=== PATIENT | male | born 1970 | race Caucasian/White ===

== ENCOUNTER 2020-07-13 14:22 | Emergency (ER) | payer SELFPAY ==
[2020-07-13] MEDS ORDERED: PREDNISONE 20 MG TABLET PO ONE (15:16)
[2020-07-13] MEDS ORDERED: IPRATROPIUM/ALBUTEROL 0.5-2.5 MG/3 ML AMPUL NEB ONE (15:17)
--- NOTE | 2020-07-13 15:22 | ER Document Report ---
ED Respiratory Problem - General Chief Complaint: Shortness Of Breath Stated Complaint: SHORTNESS OF BREATH,COUGH Time Seen by Provider: 07/13/20 15:05 - HPI Notes: Patient is a 50-year-old male with no significant past medical history who presents for shortness of breath. Shortness of breath has been present for 2 months. He states that it worsened in the last couple days. It is worse at night. He denies any orthopnea. No leg swelling. No fever or chills. No recent illnesses. No nausea, vomiting or diarrhea. Patient states he is a daily smoker. He has not seen a doctor in many years. He states he has some pain at his right lateral ribs when he coughs. No recent surgeries. No immobilization. No recent travel. - Related Data Allergies/Adverse Reactions: No Known Allergies Allergy (Unverified 07/13/20 14:50) Past Medical History - General Information source: Patient - Social History Smoking Status: Current Every Day Smoker Family History: Reviewed & Not Pertinent Pulmonary Medical History: Reports: Hx COPD Review of Systems - Review of Systems Notes: CONSTITUTIONAL: No fever, fatigue or weight loss. SKIN: No rash. HENT: No congestion, ear pain, or sore throat. EYES: No recent vision problems or eye pain. CARDIOVASCULAR: No chest pain or edema. RESPIRATORY: Positive for shortness of breath. Positive for wheezing. Positive for right rib pain with coughing. GASTROINTESTINAL: No abdominal pain, nausea, vomiting, bloody stools or diarrhea. MUSCULOSKELETAL: No joint pain or swelling. NEUROLOGIC: No seizures. No headache, focal weakness or sensory changes. HEMATOLOGIC: No unusual bruising or bleeding. PSYCHIATRIC: No depression or anxiety. Physical Exam - Vital signs Vitals: Temp Pulse Resp BP Pulse Ox 98.0 F 79 20 130/89 H 95 07/13/20 14:30 07/13/20 14:30 07/13/20 14:30 07/13/20 14:30 07/13/20 14:30 - General General appearance: Appears well Notes: VITAL SIGNS: Within normal limits. GENERAL: No acute distress, non-toxic appearance. HEAD: Normal with no signs of head trauma. EYES: Conjunctiva normal, no discharge. EARS: Hearing grossly intact. NOSE: Normal. NECK: Normal range of motion, no tenderness, supple, no lymphadenopathy, No adenopathy, no JVD. CHEST: Wheezing in upper and lower quadrants bilaterally. CARDIAC: Regular rate and rhythm. S1 and S2, without murmurs, gallops, or rubs. VASCULAR: No Edema. ABDOMEN: Normal and soft with no tenderness, no masses or pulsatile masses. GASTROINTESTINAL: Bowel sounds normal MUSCULOSKELETAL: Good range of motion of all major joints. Extremities without clubbing, cyanosis or edema. Discomfort to palpation of right lateral ribs. No rash. NEUROLOGICAL: Alert and oriented x 3. No focal sensory or strength deficits. Speech normal. Follows commands appropriately. PSYCHIATRIC: Normal Affect, judgement and mood. SKIN: Normal appearance with no rashes or lesions. Course - Re-evaluation Re-evalutation: 07/13/20 15:21 I recommended patient obtain lab work to check out his heart as well as a BNP and a D-dimer as he has right-sided chest pain. Patient declined. He states he does not like needles and does not want blood work. He is having wheezing in all lung lobes. I do believe he could have the start of COPD as he is a daily smoker. I will treat him with prednisone and a nebulizer. Patient will be reassessed. Patient is improved after treatment. He continues to decline any blood work. I will discharge him with a inhaler and a course of prednisone. He will be referred to the family doctor. Patient was given strict return precautions. His vitals are normal on reassessment and he is in no distress. 07/14/20 01:17 - Vital Signs Vital signs: Temp Pulse Resp BP Pulse Ox 97.9 F 84 16 119/80 95 07/13/20 16:59 07/13/20 16:59 07/13/20 16:59 07/13/20 16:59 07/13/20 16:59 - Laboratory Results Critical Laboratory Results Reviewed: No Critical Results - Radiology Results Critical Radiology Results Reviewed: No Critical Results - EKG Interpretation by Me EKG shows normal: Sinus rhythm Rate: Normal Rhythm: NSR When compared to previous EKG there are: Previous EKG unavailable Discharge - Discharge Clinical Impression: Wheezing, Shortness of breath Condition: Stable Disposition: HOME, SELF-CARE Instructions: Dyspnea, Nonspecific ([facility]) Additional Instructions: Take your medication as prescribed. Please follow-up with your doctor. Medially for any worsening shortness of breath, chest pain, any others concerning symptoms. Prescriptions: Albuterol Sulfate [Albuterol Sulfate Hfa] 2 puff IH Q6H PRN #1 [id number] PRN Reason: Prednisone [Deltasone 20 mg Tablet] 40 mg PO DAILY 4 Days #8 tablet
--- NOTE | 2020-07-13 16:00 | RADIOLOGY REPORT (SQ) ---
EXAM DESCRIPTION: CHEST SINGLE VIEW IMAGES COMPLETED DATE/TIME: 07/13/2020 3:13 pm REASON FOR STUDY: bed 7 short of breath COMPARISON: None. EXAM PARAMETERS: NUMBER OF VIEWS: Two views TECHNIQUE: 2 frontal radiographic views of the chest acquired. RADIATION DOSE: NA LIMITATIONS: None. FINDINGS: LUNGS AND PLEURA: No opacities, masses or pneumothorax. No pleural effusion. MEDIASTINUM AND HILAR STRUCTURES: No masses. Contour normal. HEART AND VASCULAR STRUCTURES: Heart normal in size. Normal vasculature. BONES: No acute findings. HARDWARE: None in the chest. OTHER: No other significant finding. IMPRESSION: No acute pulmonary findings. TECHNICAL DOCUMENTATION: JOB ID: [id number] 2010 [employer]- All Rights Reserved Reading location - IP/workstation name: [email or web address]
[2020-07-13 17:03] VITALS: BP 119/80
--- NOTE | 2020-07-14 00:16 | EKG REPORT ---
SEVERITY:- NORMAL ECG - SINUS RHYTHM : Confirmed by: Fred Sow 14-Jul-2020 00:14:53
== END 2020-07-13 17:03 | disposition home or self-care (01) ==
LOC: ER 14:22
DX: R06.02 Shortness of breath (principal); R06.2 Wheezing; R05 Cough; F17.200 Nicotine dependence, unspecified, uncomplicated
CPT/HCPCS: 93005; 94640; 99284; 71045; 93010; J7512